=== PATIENT | female | born 1955 | race Two or more races ===

== ENCOUNTER 2018-01-18 09:24 | Outpatient (CLI) | payer OTHER ==
[~2018-01-18 09:24] MED LIST: VYTORIN 10-40 M1 TAB PO
== END 2018-01-18 11:10 | disposition home or self-care (01) ==
LOC: NUCLEAR 09:24
DX: I11.9 Hypertensive heart disease without heart failure (principal); E78.5 Hyperlipidemia, unspecified; I25.9 Chronic ischemic heart disease, unspecified
CPT/HCPCS: 78452; 93017; A9500

== ENCOUNTER 2018-04-23 09:14 | Outpatient (CLI) | payer OTHER | END 2018-04-23 09:30 | disposition home or self-care (01) | LOC: TOM 09:14 | DX: R10.84 Generalized abdominal pain (principal) ==

== ENCOUNTER 2021-06-03 08:00 | Outpatient (CLI) | payer OTHER | END 2021-06-03 08:30 | disposition home or self-care (01) | LOC: PPH VACUNA 08:00 | PROVIDERS: ATTEND Emergency Medicine Pediatric Emergency Medicine | DX: Z23 Encounter for immunization (principal) ==

== ENCOUNTER 2022-03-13 07:05 | Outpatient (CLI) | payer OTHER | END 2022-03-13 07:10 | disposition home or self-care (01) | LOC: LAB 07:05 | DX: U07.1 COVID-19 (principal); B34.1 Enterovirus infection, unspecified ==

== ENCOUNTER 2022-03-13 07:23 | Outpatient (CLI) | payer OTHER | END 2022-03-13 07:25 | disposition home or self-care (01) | LOC: NUCLEAR 07:23 | PROVIDERS: ATTEND Specialist | DX: I11.9 Hypertensive heart disease without heart failure (principal); E78.5 Hyperlipidemia, unspecified; R07.2 Precordial pain; I25.9 Chronic ischemic heart disease, unspecified | CPT/HCPCS: 78452; 93017; A9500 ==

== ENCOUNTER → 2024-10-03 07:00 | Outpatient (CLI) | payer OTHER | END | disposition home or self-care (01) | LOC: NUCLEAR 07:00 | PROVIDERS: ATTEND Specialist | DX: I11.9 Hypertensive heart disease without heart failure (principal) | CPT/HCPCS: 78452; 93017; A9500 ==